=== PATIENT | male | born 1960 | race Caucasian/White ===

== ENCOUNTER 2020-05-28 09:49 | Outpatient (CLI) | payer BC | END 2020-05-28 09:50 | disposition home or self-care (01) | LOC: PET 09:49 | PROVIDERS: ATTEND Internal Medicine Hematology & Oncology | DX: C25.9 Malignant neoplasm of pancreas, unspecified (principal); K76.9 Liver disease, unspecified | CPT/HCPCS: 78815; A9552 ==

== ENCOUNTER 2020-12-25 10:28 | Outpatient (CLI) | payer BC | END 2020-12-25 10:29 | disposition home or self-care (01) | LOC: PET 10:28 | PROVIDERS: ATTEND Internal Medicine Hematology & Oncology | DX: C25.0 Malignant neoplasm of head of pancreas (principal); C78.7 Secondary malignant neoplasm of liver and intrahepatic bile duct | CPT/HCPCS: 78815; A9552 ==

== ENCOUNTER 2021-01-16 09:28 | Outpatient (CLI) | payer BC | END 2021-01-16 09:29 | disposition home or self-care (01) | LOC: MRI 09:28 | PROVIDERS: ATTEND Radiology Radiation Oncology | DX: C25.9 Malignant neoplasm of pancreas, unspecified (principal); R16.0 Hepatomegaly, not elsewhere classified; C78.7 Secondary malignant neoplasm of liver and intrahepatic bile duct | CPT/HCPCS: 74183 ==

== ENCOUNTER 2021-02-02 18:07 | Inpatient (IN) | payer BC ==
[~2021-02-02 18:07] MED LIST: Iopamidol-370 76% 500 ML 1 ML ONE
[2021-02-02 18:35] LABS: INR-International Normal Ratio 1.1; Prothrombin Time 14.1 sec (12.0-14.7)
[2021-02-02 18:36] LABS: ALT (SGPT) 25 U/L (8-55); AST (SGOT) 27 U/L (5-34); Albumin 3.9 g/dL (3.4-4.8); Alkaline Phosphatase 130 U/L (40-110); Anion Gap 14 mmol/L (10-20); BUN (Urea Nitrogen) 21 mg/dL (8.4-25.7); Bilirubin, Total 1.4 mg/dL (0.2-1.2); CK (CPK) 132 U/L (30-200); Calc. Creatinine Clearance 0 mL/min (70-130); Calcium 9.1 mg/dL (7.8-10.44); Carbon Dioxide 24 mmol/L (23-31); Chloride 101 mmol/L (98-107); Globulin 2.3 g/dL (2.4-3.5); Glucose 139 mg/dL (80-115); PTT 24.9 sec (22.9-36.1); Potassium 4.1 mmol/L (3.5-5.1); Protein, Total 6.2 g/dL (5.8-8.1); Sodium 135 mmol/L (136-145)
[2021-02-02 18:39] LABS: #Eosinphils 0.1 thou/uL (0.0-0.7); #Lymphocytes 0.6 thou/uL (1.20-3.40); #Monocytes 0.2 thou/uL (0.11-0.59); #Neutrophils 7.3 thou/uL (1.40-6.50); %Basophils 0.2 % (0.0-1.0); %Eosinophils 0.9 % (0.0-10.0); %Lymphocytes 7.4 % (21.0-51.0); %Monocytes 2.9 % (0.0-10.0); %Neutrophils 88.6 % (42.0-75.0); MDiff Complete? YES; Mean Corpuscular HGB CONC 34.1 g/dL (32.0-36.0); Mean Corpuscular Volume 96.6 fL (78.0-98.0); Mean Platelet Volume 7.1 fL (7.4-10.4); Platelet Count 115 thou/uL (130-400); Platelet Morphology Comment Appears Decreased; Polychromasia SLIGHT = 2-3 cells (100X) (0-2/hpf); RBC Distribution Width 11.4 % (11.5-14.5); Red Blood Cell (RBC) Count 3.94 mill/uL (4.70-6.10); White Blood Cell (WBC) Count 8.3 thou/uL (4.8-10.8)
[2021-02-02 19:12] LABS: CKMB 4.2 ng/mL (0-6.6)
[2021-02-02] MEDS ORDERED: Ondansetron ODT 4 MG TAB PO PRN (20:39)
[2021-02-02] MEDS ORDERED: Ondansetron PF 4 MG/2 ML Vial IVP PRN (20:39)
[2021-02-02] MEDS ORDERED: Acetaminophen 325 MG TAB PO PRN (20:39)
[2021-02-02] MEDS ORDERED: Dextrose 5% in Water 1,000 ML IV PRN (20:41)
[2021-02-02] MEDS ORDERED: Dextrose 50% Abboject 50 ML SYRINGE SLOW IVP PRN (20:41)
[2021-02-03] MEDS: Pantoprazole 40 MG VIAL IVP SCH (08:37)
[2021-02-03] MEDS ORDERED: Cepastat Lozenges 1 LOZ PO PRN (09:18)
[2021-02-03] MEDS ORDERED: Sodium Chloride 0.65% Nasal 44 ML BOT EA NARE PRN (09:18)
[2021-02-03] MEDS ORDERED: Loperamide HCl 2 MG CAP PO PRN (09:18)
[2021-02-03] MEDS ORDERED: Calcium Carbonate 500 MG ChewTAB PO PRN (09:18)
[2021-02-03] MEDS ORDERED: Hydrocerin (Eucerin) Cream 120 gm Jar TOP PRN (09:18)
[2021-02-03] MEDS ORDERED: Senokot S 8.6-50 MG TAB PO PRN (09:18)
[2021-02-03] MEDS ORDERED: Loratadine 10 MG TAB PO PRN (09:18)
[2021-02-03] MEDS ORDERED: GUAIFENESIN SF SOLN 200 MG/10 ML UDCUP PO PRN (09:18)
[2021-02-03] MEDS ORDERED: Bisacodyl 5 MG TAB PO PRN (09:18)
[2021-02-03] MEDS ORDERED: Artificial Tear Sol 15 ML BOT EA EYE PRN (09:18)
[2021-02-03] MEDS ORDERED: Acetaminophen 650 MG Suppository PR PRN (09:18)
[2021-02-03] MEDS ORDERED: Sodium Chloride 0.9% 1,000 ML IV SCH (12:30)
[2021-02-03 14:12] LABS: SARS-CoV-2 PCR by NAA Not Detected (NotDetected)
[2021-02-03] MEDS: hydrALAZINE 20 MG/ML VIAL SLOW IVP PRN ×2 (20:28→23:53)
[2021-02-03 20:32] LABS: Cardiac Risk 3.3 (Less than 4.5)
[2021-02-03] MEDS ORDERED: niCARdipine 25 MG in Sodium Chloride 0.9% 250 ML 250 ML IVPB PRN (20:35)
[2021-02-03] MEDS: niCARdipine 50 MG in Sodium Chloride 0.9% 250 ML 250 ML IVPB PRN (23:45)
[2021-02-04] MEDS: niCARdipine 50 MG in Sodium Chloride 0.9% 250 ML 250 ML IVPB PRN ×6 (02:56→23:15)
[2021-02-04] MEDS: Pantoprazole 40 MG VIAL IVP SCH (09:01)
[2021-02-04] MEDS: Cyanocobalamin (Vitamin B-12) 1,000 MCG TAB PO SCH (09:01)
[2021-02-04] MEDS: Folic Acid 1 MG TAB PO SCH (09:02)
[2021-02-04 18:08] LABS: Troponin I 0.473 ng/mL (< 0.028)
[2021-02-05] MEDS: niCARdipine 50 MG in Sodium Chloride 0.9% 250 ML 250 ML IVPB PRN ×4 (02:59→23:19)
[2021-02-05] MEDS: Pantoprazole 40 MG VIAL IVP SCH (07:50)
[2021-02-05] MEDS: Folic Acid 1 MG TAB PO SCH (07:52)
[2021-02-05] MEDS: Cyanocobalamin (Vitamin B-12) 1,000 MCG TAB PO SCH (07:52)
[2021-02-05 09:24] LABS: Hemoglobin 12.7 g/dL (14.0-18.0); Mean Corpuscular HGB CONC 33.6 g/dL (32.0-36.0); Mean Corpuscular Hemoglobin 32.9 pg (27.0-31.0); Mean Corpuscular Volume 97.7 fL (78.0-98.0); Mean Platelet Volume 7.5 fL (7.4-10.4); Platelet Count 89 thou/uL (130-400); RBC Distribution Width 11.3 % (11.5-14.5); Red Blood Cell (RBC) Count 3.87 mill/uL (4.70-6.10); White Blood Cell (WBC) Count 23.6 thou/uL (4.8-10.8)
[2021-02-05 09:31] LABS: Anion Gap 14 mmol/L (10-20); BUN (Urea Nitrogen) 30 mg/dL (8.4-25.7); Calc. Creatinine Clearance 80 mL/min (70-130); Calcium 8.6 mg/dL (7.8-10.44); Carbon Dioxide 23 mmol/L (23-31); Chloride 108 mmol/L (98-107); Glucose 216 mg/dL (80-115); Potassium 3.8 mmol/L (3.5-5.1); Sodium 141 mmol/L (136-145)
[2021-02-05 10:09] LABS: Band 23 % (5-11); Lymphocytes 3 % (21-51); MDiff Complete? YES; Monocytes 1 % (0-10); Neutrophil 72 % (42-75); Platelet Morphology Comment Appears Decreased; Polychromasia SLIGHT = 2-3 cells (100X) (0-2/hpf); Reactive Lymphocytes 1 % (0-10)
[2021-02-05] MEDS: HumaLOG 300 UNITS/3 ML VIAL SC PRN ×2 (10:41→18:21)
[2021-02-05] MEDS ORDERED: Piperacillin/Tazobactam 3.375 GM in Sodium Chloride 0.9% 100 ML IVPB SCH ×2 (16:30→17:00)
[2021-02-05] MEDS: Piperacillin/Tazobactam 3.375 GM in Sodium Chloride 0.9% 100 ML IVPB SCH (21:59)
[2021-02-06] MEDS: niCARdipine 50 MG in Sodium Chloride 0.9% 250 ML 250 ML IVPB PRN ×7 (02:29→22:37)
[2021-02-06 03:59] LABS: Anion Gap 13 mmol/L (10-20); BUN (Urea Nitrogen) 27 mg/dL (8.4-25.7); Calc. Creatinine Clearance 74 mL/min (70-130); Calcium 8.8 mg/dL (7.8-10.44); Carbon Dioxide 24 mmol/L (23-31); Chloride 110 mmol/L (98-107); Glucose 225 mg/dL (80-115); Potassium 3.7 mmol/L (3.5-5.1); Sodium 143 mmol/L (136-145)
[2021-02-06] MEDS: Piperacillin/Tazobactam 3.375 GM in Sodium Chloride 0.9% 100 ML IVPB SCH ×3 (04:43→20:53)
[2021-02-06 05:41] LABS: Band 11 % (5-11); Lymphocytes 2 % (21-51); MDiff Complete? YES; Mean Corpuscular HGB CONC 34.2 g/dL (32.0-36.0); Mean Corpuscular Hemoglobin 33.4 pg (27.0-31.0); Mean Corpuscular Volume 97.6 fL (78.0-98.0); Mean Platelet Volume 8.1 fL (7.4-10.4); Monocytes 1 % (0-10); Neutrophil 85 % (42-75); Platelet Count 86 thou/uL (130-400); Platelet Morphology Comment Appears Decreased; RBC Distribution Width 11.4 % (11.5-14.5); Red Blood Cell (RBC) Count 3.58 mill/uL (4.70-6.10)
[2021-02-06] MEDS: Cyanocobalamin (Vitamin B-12) 1,000 MCG TAB PO SCH (08:45)
[2021-02-06] MEDS: Folic Acid 1 MG TAB PO SCH (08:45)
[2021-02-06] MEDS: Pantoprazole 40 MG VIAL IVP SCH (09:02)
[2021-02-06] MEDS: HumaLOG 300 UNITS/3 ML VIAL SC PRN ×2 (10:00→15:59)
[2021-02-06] MEDS ORDERED: niCARdipine 50 MG in Sodium Chloride 0.9% 250 ML 230 ML IVPB PRN (10:30)
[2021-02-06 12:43] LABS: Bacteria/HPF 1+ HPF (None Seen); Bilirubin Negative (Negative); Blood, Urine Negative (Negative); Clarity Clear (Clear); Glucose, Urine (Dipstick) 500 mg/dL (Negative); Ketone, Urine 20 mg/dL (Negative); Leukocyte Negative Leu/uL (Negative); Nitrite Negative (Negative); Protein, Urine (Dipstick) Negative (Neg-Trace); RBC/HPF 0-3 HPF (0-3); Specific Gravity, Urine 1.022 (1.002-1.036); Squamous Epithelial None Seen HPF (0-3); Urobilinogen Normal mg/dL (Less than 2); WBC/HPF 0-3 HPF (0-3)
[2021-02-06 12:44] LABS: Urine Culture Reflex Yes Yes
[2021-02-06 15:35] LABS: Calcium 8.8 mg/dL (7.8-10.44); Magnesium 2.4 mg/dL (1.6-2.6); Potassium 3.6 mmol/L (3.5-5.1)
[2021-02-07] MEDS: hydrALAZINE 20 MG/ML VIAL SLOW IVP PRN (01:39)
[2021-02-07] MEDS: niCARdipine 50 MG in Sodium Chloride 0.9% 250 ML 250 ML IVPB PRN ×5 (02:16→20:30)
[2021-02-07 04:02] LABS: Hemoglobin 12.2 g/dL (14.0-18.0); Mean Corpuscular HGB CONC 33.3 g/dL (32.0-36.0); Mean Corpuscular Hemoglobin 32.8 pg (27.0-31.0); Mean Corpuscular Volume 98.5 fL (78.0-98.0); Mean Platelet Volume 7.9 fL (7.4-10.4); Platelet Count 96 thou/uL (130-400); RBC Distribution Width 11.4 % (11.5-14.5); Red Blood Cell (RBC) Count 3.72 mill/uL (4.70-6.10); White Blood Cell (WBC) Count 9.2 thou/uL (4.8-10.8)
[2021-02-07 04:14] LABS: Anion Gap 16 mmol/L (10-20); BUN (Urea Nitrogen) 24 mg/dL (8.4-25.7); Calc. Creatinine Clearance 81 mL/min (70-130); Calcium 9.1 mg/dL (7.8-10.44); Carbon Dioxide 22 mmol/L (23-31); Chloride 113 mmol/L (98-107); Glucose 221 mg/dL (80-115); Potassium 3.7 mmol/L (3.5-5.1); Sodium 147 mmol/L (136-145)
[2021-02-07 04:35] LABS: Band 14 % (5-11); Dohle Bodies SLIGHT; Eosinophils 4 % (0-10); Lymphocytes 4 % (21-51); MDiff Complete? YES; Monocytes 1 % (0-10); Neutrophil 77 % (42-75); Platelet Morphology Comment Appears Decreased; Toxic Granulation SLIGHT
[2021-02-07] MEDS: Piperacillin/Tazobactam 3.375 GM in Sodium Chloride 0.9% 100 ML IVPB SCH ×3 (04:50→20:21)
[2021-02-07] MEDS: HumaLOG 300 UNITS/3 ML VIAL SC PRN ×4 (04:52→22:00)
[2021-02-07] MEDS: Metoprolol Tartrate 25 MG TAB PER TUBE SCH ×2 (08:56→20:22)
[2021-02-07] MEDS: Pantoprazole 40 MG VIAL IVP SCH (08:56)
[2021-02-07] MEDS: Folic Acid 1 MG TAB PO SCH (08:56)
[2021-02-07] MEDS: Cyanocobalamin (Vitamin B-12) 1,000 MCG TAB PO SCH (08:56)
[2021-02-07] MEDS ORDERED: Fentanyl 100 MCG/2 ML VIAL ONE (11:55)
[2021-02-07] MEDS ORDERED: Lidocaine 1% w/Epinephrine 1:100K 20 ML VIAL ONE (12:00)
[2021-02-07] MEDS ORDERED: Bupivacaine 0.25% 10 ML VIAL ONE (12:00)
[2021-02-07] MEDS ORDERED: Lidocaine 1% PF 5 ML VIAL ONE (12:40)
[2021-02-07] MEDS ORDERED: Glycopyrrolate 0.2 MG/ML 5 ML SYRINGE ONE (12:40)
[2021-02-07] MEDS ORDERED: Dexamethasone 20 MG/5 ML VIAL ONE (12:40)
[2021-02-07] MEDS ORDERED: PROPOFOL 200 MG/20 ML VIAL ONE (12:40)
[2021-02-07] MEDS ORDERED: Rocuronium Bromide 10 MG/ML (10ML VIAL) ONE (12:40)
[2021-02-07] MEDS ORDERED: Ondansetron PF 4 MG/2 ML Vial ONE (12:40)
[2021-02-07] MEDS ORDERED: Morphine 4 MG/ML VIAL SLOW IVP PRN (13:14)
[2021-02-07] MEDS ORDERED: Hydrocodone-Acetamin 15 ML UDCUP PO PRN (13:14)
[2021-02-07] MEDS ORDERED: Ondansetron HCl/PF 4 MG/2 ML Vial IVP PRN (13:35)
[2021-02-07] MEDS ORDERED: Promethazine HCl 25 MG/ML VIAL IVPB PRN (13:35)
[2021-02-07] MEDS ORDERED: Promethazine HCl 25 MG/ML VIAL IM PRN (13:35)
[2021-02-07] MEDS ORDERED: Pancrelipase DR 12,000 1 CAP FS PRN (19:15)
[2021-02-07] MEDS ORDERED: Sodium Bicarbonate Tab 325 MG TAB PER TUBE PRN (19:15)
[2021-02-08] MEDS: Piperacillin/Tazobactam 3.375 GM in Sodium Chloride 0.9% 100 ML IVPB SCH (04:39)
[2021-02-08] MEDS: HumaLOG 300 UNITS/3 ML VIAL SC PRN ×3 (04:40→18:06)
[2021-02-08] MEDS: hydrALAZINE 20 MG/ML VIAL SLOW IVP PRN ×2 (07:33→17:12)
[2021-02-08 09:09] VITALS: BMI 22.2
[2021-02-08] MEDS: Folic Acid 1 MG TAB PO SCH (09:10)
[2021-02-08] MEDS: Pantoprazole 40 MG VIAL IVP SCH (09:10)
[2021-02-08] MEDS: Cyanocobalamin (Vitamin B-12) 1,000 MCG TAB PO SCH (09:11)
[2021-02-08] MEDS: Metoprolol Tartrate 25 MG TAB PER TUBE SCH ×2 (09:11→21:12)
[2021-02-08 09:32] LABS: Anion Gap 15 mmol/L (10-20); BUN (Urea Nitrogen) 27 mg/dL (8.4-25.7); Calc. Creatinine Clearance 75 mL/min (70-130); Calcium 9.3 mg/dL (7.8-10.44); Carbon Dioxide 23 mmol/L (23-31); Chloride 113 mmol/L (98-107); Glucose 276 mg/dL (80-115); Magnesium 2.5 mg/dL (1.6-2.6); Phosphorus 3.3 mg/dL (2.3-4.7); Potassium 4.2 mmol/L (3.5-5.1); Sodium 147 mmol/L (136-145)
[2021-02-08 13:36] LABS: Hemoglobin A1c 7.3 % (4.0-6.0)
[2021-02-08] MEDS: Labetalol HCl 100 MG/20 ML VIAL SLOW IVP PRN (18:57)
[2021-02-08] MEDS: Carvedilol 6.25 MG TAB PO SCH (21:13)
[2021-02-09] MEDS: HumaLOG 300 UNITS/3 ML VIAL SC PRN ×5 (00:26→21:52)
[2021-02-09] MEDS: hydrALAZINE 20 MG/ML VIAL SLOW IVP PRN ×2 (05:14→10:09)
[2021-02-09] MEDS: Pantoprazole 40 MG VIAL IVP SCH (10:08)
[2021-02-09] MEDS: Folic Acid 1 MG TAB PO SCH (10:09)
[2021-02-09] MEDS: Carvedilol 6.25 MG TAB PO SCH (10:09)
[2021-02-09] MEDS: Cyanocobalamin (Vitamin B-12) 1,000 MCG TAB PO SCH (10:09)
[2021-02-09] MEDS ORDERED: BIOTENE MOUTH SPRAY 44.3 ML MM PRN (11:52)
[2021-02-09] MEDS: Metoprolol Tartrate 25 MG TAB PER TUBE SCH ×3 (12:23→21:46)
[2021-02-09] MEDS: hydrALAZINE 25 MG TAB PER TUBE SCH ×2 (15:55→21:46)
[2021-02-10] MEDS: HumaLOG 300 UNITS/3 ML VIAL SC PRN ×4 (05:57→22:38)
[2021-02-10] MEDS: Pantoprazole 40 MG VIAL IVP SCH (08:59)
[2021-02-10] MEDS: Folic Acid 1 MG TAB PO SCH (08:59)
[2021-02-10] MEDS: hydrALAZINE 25 MG TAB PER TUBE SCH ×4 (08:59→20:01)
[2021-02-10] MEDS: Metoprolol Tartrate 25 MG TAB PER TUBE SCH ×2 (09:00→20:02)
[2021-02-10] MEDS: Cyanocobalamin (Vitamin B-12) 1,000 MCG TAB PO SCH (09:00)
[2021-02-10 10:34] LABS: #Eosinphils 0.1 thou/uL (0.0-0.7); #Lymphocytes 0.4 thou/uL (1.20-3.40); #Monocytes 0.2 thou/uL (0.11-0.59); #Neutrophils 2.1 thou/uL (1.40-6.50); %Basophils 0.3 % (0.0-1.0); %Eosinophils 1.8 % (0.0-10.0); %Lymphocytes 13.3 % (21.0-51.0); %Monocytes 8.2 % (0.0-10.0); %Neutrophils 76.4 % (42.0-75.0); Hemoglobin 13.2 g/dL (14.0-18.0); Mean Corpuscular HGB CONC 32.6 g/dL (32.0-36.0); Mean Corpuscular Hemoglobin 32.6 pg (27.0-31.0); Mean Platelet Volume 7.9 fL (7.4-10.4); Platelet Count 98 thou/uL (130-400); RBC Distribution Width 11.6 % (11.5-14.5); Red Blood Cell (RBC) Count 4.06 mill/uL (4.70-6.10); White Blood Cell (WBC) Count 2.8 thou/uL (4.8-10.8)
[2021-02-10 10:53] LABS: Anion Gap 12 mmol/L (10-20); BUN (Urea Nitrogen) 28 mg/dL (8.4-25.7); Calc. Creatinine Clearance 98 mL/min (70-130); Calcium 9.1 mg/dL (7.8-10.44); Carbon Dioxide 28 mmol/L (23-31); Chloride 110 mmol/L (98-107); Glucose 267 mg/dL (80-115); Potassium 3.9 mmol/L (3.5-5.1); Sodium 146 mmol/L (136-145)
[2021-02-10] MEDS: hydrALAZINE 20 MG/ML VIAL SLOW IVP PRN ×2 (15:19→23:32)
[2021-02-10] MEDS: Labetalol HCl 100 MG/20 ML VIAL SLOW IVP PRN (16:21)
[2021-02-10 21:45] LABS: SARS-CoV-2 PCR by NAA Not Detected (NotDetected)
[2021-02-11] MEDS: HumaLOG 300 UNITS/3 ML VIAL SC PRN ×3 (05:03→17:57)
[2021-02-11] MEDS: hydrALAZINE 20 MG/ML VIAL SLOW IVP PRN (05:03)
[2021-02-11 05:58] LABS: #Eosinphils 0.1 thou/uL (0.0-0.7); #Lymphocytes 0.4 thou/uL (1.20-3.40); #Monocytes 0.2 thou/uL (0.11-0.59); #Neutrophils 2.6 thou/uL (1.40-6.50); %Basophils 0.9 % (0.0-1.0); %Eosinophils 2.8 % (0.0-10.0); %Lymphocytes 12.4 % (21.0-51.0); %Monocytes 5.4 % (0.0-10.0); %Neutrophils 78.5 % (42.0-75.0); Hemoglobin 13.3 g/dL (14.0-18.0); Mean Corpuscular HGB CONC 33.7 g/dL (32.0-36.0); Mean Corpuscular Hemoglobin 33.2 pg (27.0-31.0); Mean Corpuscular Volume 98.5 fL (78.0-98.0); Mean Platelet Volume 8.2 fL (7.4-10.4); Platelet Count 94 thou/uL (130-400); RBC Distribution Width 11.5 % (11.5-14.5); Red Blood Cell (RBC) Count 4.01 mill/uL (4.70-6.10); White Blood Cell (WBC) Count 3.3 thou/uL (4.8-10.8)
[2021-02-11 06:18] LABS: Anion Gap 12 mmol/L (10-20); BUN (Urea Nitrogen) 23 mg/dL (8.4-25.7); Calc. Creatinine Clearance 94 mL/min (70-130); Calcium 8.8 mg/dL (7.8-10.44); Carbon Dioxide 27 mmol/L (23-31); Chloride 109 mmol/L (98-107); Glucose 260 mg/dL (80-115); Potassium 3.8 mmol/L (3.5-5.1); Sodium 144 mmol/L (136-145)
[2021-02-11] MEDS: hydrALAZINE 25 MG TAB PER TUBE SCH ×3 (08:35→20:03)
[2021-02-11] MEDS: Metoprolol Tartrate 25 MG TAB PER TUBE SCH ×2 (08:36→20:04)
[2021-02-11] MEDS: Pantoprazole 40 MG VIAL IVP SCH (08:36)
[2021-02-11] MEDS: Folic Acid 1 MG TAB PO SCH (08:36)
[2021-02-11] MEDS: Cyanocobalamin (Vitamin B-12) 1,000 MCG TAB PO SCH (08:36)
[2021-02-11] MEDS ORDERED: Dextrose 50% Abboject 50 ML SYRINGE SLOW IVP PRN (13:04)
[2021-02-11] MEDS ORDERED: Dextrose 5% in Water 1,000 ML IV PRN (13:04)
[2021-02-11] MEDS: metFORMIN 500 MG TAB PO SCH (17:54)
[2021-02-12] MEDS: HumaLOG 300 UNITS/3 ML VIAL SC PRN ×5 (00:50→21:44)
[2021-02-12] MEDS: metFORMIN 500 MG TAB PO SCH ×2 (08:33→16:56)
[2021-02-12] MEDS: Pantoprazole 40 MG VIAL IVP SCH (08:33)
[2021-02-12] MEDS: Folic Acid 1 MG TAB PO SCH (08:34)
[2021-02-12] MEDS: Cyanocobalamin (Vitamin B-12) 1,000 MCG TAB PO SCH (08:34)
[2021-02-12] MEDS: hydrALAZINE 25 MG TAB PER TUBE SCH ×3 (08:34→21:37)
[2021-02-12] MEDS: Metoprolol Tartrate 25 MG TAB PER TUBE SCH ×2 (08:34→21:37)
[2021-02-13] MEDS: HumaLOG 300 UNITS/3 ML VIAL SC PRN ×3 (00:59→18:35)
[2021-02-13] MEDS: Metoprolol Tartrate 25 MG TAB PER TUBE SCH ×2 (08:44→22:18)
[2021-02-13] MEDS: Folic Acid 1 MG TAB PO SCH (08:44)
[2021-02-13] MEDS: hydrALAZINE 25 MG TAB PER TUBE SCH ×3 (08:44→22:14)
[2021-02-13] MEDS: Pantoprazole 40 MG GRANULES PACKET PER TUBE SCH (08:45)
[2021-02-13] MEDS: Cyanocobalamin (Vitamin B-12) 1,000 MCG TAB PO SCH (08:45)
[2021-02-13] MEDS: metFORMIN 500 MG TAB PO SCH ×2 (08:45→15:48)
[2021-02-13] MEDS ORDERED: Atorvastatin Calcium 40 MG TAB PER TUBE SCH (21:00)
[2021-02-14] MEDS: Pantoprazole 40 MG GRANULES PACKET PER TUBE SCH (08:17)
[2021-02-14] MEDS: hydrALAZINE 25 MG TAB PER TUBE SCH ×2 (08:18→14:32)
[2021-02-14] MEDS: Cyanocobalamin (Vitamin B-12) 1,000 MCG TAB PO SCH (08:18)
[2021-02-14] MEDS: metFORMIN 500 MG TAB PO SCH ×2 (08:18→17:53)
[2021-02-14] MEDS: Metoprolol Tartrate 25 MG TAB PER TUBE SCH (08:18)
[2021-02-14] MEDS: Folic Acid 1 MG TAB PO SCH (08:18)
[2021-02-14] MEDS ORDERED: Aspirin Chewable 81 MG TAB PER TUBE SCH (09:00)
[2021-02-14] MEDS ORDERED: Aspirin 81 mg Enteric Coated Tablet PER TUBE SCH (09:00)
[2021-02-14] MEDS: HumaLOG 300 UNITS/3 ML VIAL SC PRN ×2 (14:32→18:44)
[2021-02-14 15:50] VITALS: BP 125/63; TEMP 97.9
== END 2021-02-14 20:05 | DRG 61 ==
LOC: ERS 18:07 → CCU 20:10 → NEURO 02-08 09:23
PROVIDERS: ADMIT Internal Medicine; ATTEND Internal Medicine
PROC: 02HV33Z Insertion of Infusion Device into Superior Vena Cava, Percutaneous Approach (ICD-10-PCS; principal; 2021-02-02)
PROC: 3E03317 Introduction of Other Thrombolytic into Peripheral Vein, Percutaneous Approach (ICD-10-PCS; 2021-02-02)
PROC: 0DH63UZ Insertion of Feeding Device into Stomach, Percutaneous Approach (ICD-10-PCS; 2021-02-07)
DX: I63.511 Cerebral infarction due to unspecified occlusion or stenosis of right middle cerebral artery (principal); I21.A1 Myocardial infarction type 2; I61.8 Other nontraumatic intracerebral hemorrhage; G81.94 Hemiplegia, unspecified affecting left nondominant side; E87.1 Hypo-osmolality and hyponatremia; I47.1 Supraventricular tachycardia; E46 Unspecified protein-calorie malnutrition; C25.0 Malignant neoplasm of head of pancreas; Z20.822 Contact with and (suspected) exposure to COVID-19; R29.810 Facial weakness; R13.12 Dysphagia, oropharyngeal phase; D64.9 Anemia, unspecified; D69.6 Thrombocytopenia, unspecified; R22.42 Localized swelling, mass and lump, left lower limb; E80.6 Other disorders of bilirubin metabolism; E78.5 Hyperlipidemia, unspecified; E78.00 Pure hypercholesterolemia, unspecified; I10 Essential (primary) hypertension; R13.0 Aphagia; E11.319 Type 2 diabetes mellitus with unspecified diabetic retinopathy without macular edema; Z85.07 Personal history of malignant neoplasm of pancreas; Z92.21 Personal history of antineoplastic chemotherapy; Z79.899 Other long term (current) drug therapy; Z91.81 History of falling; Z68.22 Body mass index [BMI] 22.0-22.9, adult; D70.1 Agranulocytosis secondary to cancer chemotherapy
CPT/HCPCS: 36415; 36416; 70450; 70496; 70498; 71045; 74230; 80048; 80053; 80061; 81001; 82550; 82553; 83036; 83735; 84100; 84145; 84484; 85025; 85610; 85730; 87040; 87086; 93005; 93306; 93970; C9113; J0360; J1100; J1815; J2405; J2543; J2704; J2997; J3010; J3490; J7050; Q9967; S0020; U0003; U0005

== ENCOUNTER 2021-03-18 13:15 | Inpatient (IN) | payer BC ==
[2021-03-18 14:05] LABS: #Eosinphils 0.1 thou/uL (0.0-0.7); #Lymphocytes 1.1 thou/uL (1.20-3.40); #Monocytes 0.9 thou/uL (0.11-0.59); #Neutrophils 7.5 thou/uL (1.40-6.50); %Basophils 0.3 % (0.0-1.0); %Eosinophils 1.5 % (0.0-10.0); %Lymphocytes 11.2 % (21.0-51.0); %Monocytes 9.2 % (0.0-10.0); %Neutrophils 77.8 % (42.0-75.0); Hemoglobin 14.4 g/dL (14.0-18.0); Mean Corpuscular HGB CONC 32.4 g/dL (32.0-36.0); Mean Corpuscular Hemoglobin 30.2 pg (27.0-31.0); Mean Platelet Volume 7.7 fL (7.4-10.4); Platelet Count 166 thou/uL (130-400); RBC Distribution Width 12.4 % (11.5-14.5); Red Blood Cell (RBC) Count 4.76 mill/uL (4.70-6.10); White Blood Cell (WBC) Count 9.6 thou/uL (4.8-10.8)
[2021-03-18 14:31] LABS: ALT (SGPT) 38 U/L (8-55); AST (SGOT) 56 U/L (5-34); Albumin 3.7 g/dL (3.4-4.8); Alkaline Phosphatase 248 U/L (40-110); Anion Gap 19 mmol/L (10-20); BUN (Urea Nitrogen) 9 mg/dL (8.4-25.7); Bilirubin, Total 0.6 mg/dL (0.2-1.2); Calc. Creatinine Clearance 0 mL/min (70-130); Calcium 9.1 mg/dL (7.8-10.44); Carbon Dioxide 18 mmol/L (23-31); Chloride 104 mmol/L (98-107); Globulin 3.3 g/dL (2.4-3.5); Glucose 146 mg/dL (80-115); Potassium 4.1 mmol/L (3.5-5.1); Sodium 137 mmol/L (136-145)
[2021-03-18 14:33] LABS: INR-International Normal Ratio 1.4
[2021-03-18 14:34] LABS: PTT 30.1 sec (22.9-36.1)
[2021-03-18 14:55] LABS: CKMB 1.8 ng/mL (0-6.6)
[2021-03-18] MEDS ORDERED: Ondansetron PF 4 MG/2 ML Vial IVP PRN ×2 (15:45→21:41)
[2021-03-18] MEDS ORDERED: Ondansetron ODT 4 MG TAB SL PRN (15:45)
[2021-03-18] MEDS ORDERED: Acetaminophen 325 MG TAB PO PRN (15:45)
[2021-03-18] MEDS ORDERED: Aspirin 300 MG Suppository ONE (16:07)
[2021-03-18] MEDS: Dextrose 5 %-0.45 % NaCl 1,000 ML IV SCH (18:42)
[2021-03-18 22:23] LABS: SARS-CoV-2 NAA Rapid Test Not Detected (NotDetected)
[2021-03-19] MEDS: Dextrose 5 %-0.45 % NaCl 1,000 ML IV SCH (02:00)
[2021-03-19] MEDS ORDERED: Dextrose 5% in Water 1,000 ML IV PRN (02:34)
[2021-03-19] MEDS ORDERED: Dextrose 50% Abboject 50 ML SYRINGE SLOW IVP PRN (02:34)
[2021-03-19] MEDS ORDERED: HumaLOG 300 UNITS/3 ML VIAL SC PRN (02:34)
[2021-03-19 07:43] LABS: #Eosinphils 0.2 thou/uL (0.0-0.7); #Lymphocytes 0.7 thou/uL (1.20-3.40); #Monocytes 0.6 thou/uL (0.11-0.59); #Neutrophils 5.2 thou/uL (1.40-6.50); %Basophils 0.4 % (0.0-1.0); %Eosinophils 3.1 % (0.0-10.0); %Lymphocytes 10.3 % (21.0-51.0); %Monocytes 9.1 % (0.0-10.0); Hemoglobin 13.5 g/dL (14.0-18.0); Mean Corpuscular HGB CONC 32.6 g/dL (32.0-36.0); Mean Corpuscular Hemoglobin 30.5 pg (27.0-31.0); Mean Corpuscular Volume 93.6 fL (78.0-98.0); Mean Platelet Volume 7.3 fL (7.4-10.4); Platelet Count 124 thou/uL (130-400); RBC Distribution Width 12.3 % (11.5-14.5); Red Blood Cell (RBC) Count 4.42 mill/uL (4.70-6.10); White Blood Cell (WBC) Count 6.7 thou/uL (4.8-10.8)
[2021-03-19 08:01] LABS: Anion Gap 14 mmol/L (10-20); BUN (Urea Nitrogen) 7 mg/dL (8.4-25.7); Calc. Creatinine Clearance 0 mL/min (70-130); Carbon Dioxide 23 mmol/L (23-31); Chloride 106 mmol/L (98-107); Cholesterol 73 mg/dl (< 200 Desired); Glucose 194 mg/dL (80-115); HDL Cholesterol 24 mg/dL (>60 Neg Risk); LDL Cholesterol, Calculated 34 mg/dL; Potassium 3.3 mmol/L (3.5-5.1); Sodium 140 mmol/L (136-145); Triglycerides 76 mg/dL (Less than 150)
[2021-03-19 08:08] LABS: Troponin I 1.095 ng/mL (< 0.028)
[2021-03-19] MEDS ORDERED: Aspirin 81 mg Enteric Coated Tablet PO SCH (09:00)
[2021-03-19] MEDS: Aspirin 300 MG Suppository PR SCH (10:51)
[2021-03-19] MEDS ORDERED: Aspirin Chewable 81 MG TAB ONE (11:04)
[2021-03-19] MEDS ORDERED: Atorvastatin Calcium 40 MG TAB PER TUBE SCH (21:00)
[2021-03-19] MEDS ORDERED: Metoprolol Tartrate 5 MG/5 ML VIAL ONE ×2 (21:51→22:59)
[2021-03-19 22:04] LABS: Actual Bicarbonate (HCO3a) 18.7 mEq/L (22-28); Base Excess (BEa) -4.8 mEq/L (-2.0 to +3.0); CO2 Tension 30.7 mmHg (35.0-45.0); Calcium, Ionized (arterial) 1.21 mmol/L (1.12-1.30); Carboxyhemoglobin (COHb) 0.7 gm% (0.0-3.0); Hemoglobin (Hb) 15.3 g/dL (14.0-18.0); Potassium - ABG Lab 3.53 mmol/L (3.70-5.30)
[2021-03-19 22:12] LABS: ALV-art Gradient 629.025 mmHg (0-20); O2 Tension (PaO2), arterial 45.6 mmHg (> 80.0); Puncture Site LRA
[2021-03-19] MEDS ORDERED: Propofol 1,000 MG/100 ML VIAL IV ONE (22:47)
[2021-03-19] MEDS ORDERED: Morphine 4 MG/ML VIAL SLOW IVP PRN (22:55)
[2021-03-19] MEDS ORDERED: Fentanyl BOLUS 250 ML IVPB PRN (23:00)
[2021-03-19] MEDS ORDERED: Lorazepam 2 MG/ML VIAL SLOW IVP PRN (23:00)
[2021-03-19] MEDS ORDERED: DISCONTINUE PREVIOUS NARCOTIC PAIN MEDICATIONS AND BENZODIAZEPINES FS SCH (23:00)
[2021-03-19] MEDS ORDERED: Propofol BOLUS 1,000 MG/100 ML VIAL IV PRN (23:00)
[2021-03-19] MEDS ORDERED: fentaNYL Citrate-0.9 % NaCl/PF 100 ML IV SCH (23:00)
[2021-03-19] MEDS ORDERED: Propofol 1,000 MG/100 ML VIAL IV PRN (23:00)
[2021-03-19] MEDS ORDERED: Piperacillin/Tazobactam 3.375 GM in Sodium Chloride 0.9% 100 ML IVPB SCH ×2 (23:30→23:59)
[2021-03-19] MEDS ORDERED: Metoprolol Tartrate 5 MG/5 ML VIAL IVP SCH (23:30)
[2021-03-19 23:39] LABS: Actual Bicarbonate (HCO3a) 22.7 mEq/L (22-28); Base Excess (BEa) -1.7 mEq/L (-2.0 to +3.0); CO2 Tension 37.6 mmHg (35.0-45.0); Carboxyhemoglobin (COHb) 0.8 gm% (0.0-3.0); Hemoglobin (Hb) 15.2 g/dL (14.0-18.0); O2 Tension (PaO2), arterial 175.2 mmHg (> 80.0); Potassium - ABG Lab 3.37 mmol/L (3.70-5.30)
[2021-03-19 23:40] LABS: Puncture Site LBA
[2021-03-19] MEDS ORDERED: Sodium Chloride 0.9% 1,000 ML IV SCH (23:45)
[2021-03-19] MEDS ORDERED: Piperacillin/Tazobactam 3.375 GM VIAL ONE (23:55)
[2021-03-19] MEDS ORDERED: Sodium Chloride 0.9% 100 ML ONE (23:56)
[2021-03-20 00:33] LABS: Mean Corpuscular HGB CONC 33.3 g/dL (32.0-36.0); Mean Corpuscular Hemoglobin 31.2 pg (27.0-31.0); Mean Corpuscular Volume 93.6 fL (78.0-98.0); Mean Platelet Volume 7.9 fL (7.4-10.4); Platelet Count 156 thou/uL (130-400); RBC Distribution Width 12.4 % (11.5-14.5); Red Blood Cell (RBC) Count 5.15 mill/uL (4.70-6.10); White Blood Cell (WBC) Count 7.2 thou/uL (4.8-10.8)
[2021-03-20 00:46] LABS: Lactic Acid 1.8 mmol/L (0.5-2.2)
[2021-03-20 00:50] LABS: ALT (SGPT) 40 U/L (8-55); AST (SGOT) 47 U/L (5-34); Albumin 3.7 g/dL (3.4-4.8); Alkaline Phosphatase 266 U/L (40-110); Anion Gap 19 mmol/L (10-20); BUN (Urea Nitrogen) 10 mg/dL (8.4-25.7); Calc. Creatinine Clearance 88 mL/min (70-130); Carbon Dioxide 20 mmol/L (23-31); Chloride 105 mmol/L (98-107); Globulin 3.2 g/dL (2.4-3.5); Glucose 181 mg/dL (80-115); Potassium 3.9 mmol/L (3.5-5.1); Protein, Total 6.9 g/dL (5.8-8.1); Sodium 140 mmol/L (136-145)
[2021-03-20 00:51] LABS: #Eosinphils 0.1 thou/uL (0.0-0.7); #Lymphocytes 0.5 thou/uL (1.20-3.40); #Monocytes 0.6 thou/uL (0.11-0.59); #Neutrophils 6.1 thou/uL (1.40-6.50); %Basophils 0.1 % (0.0-1.0); %Eosinophils 0.8 % (0.0-10.0); %Lymphocytes 7.4 % (21.0-51.0); %Monocytes 7.9 % (0.0-10.0); %Neutrophils 83.7 % (42.0-75.0)
[2021-03-20 04:15] LABS: Bilirubin Negative (Negative); Blood, Urine Negative (Negative); Glucose, Urine (Dipstick) Negative (Negative); Ketone, Urine 15 mg/dL (Negative); Leukocyte Negative (Negative); Nitrite Negative (Negative); Protein, Urine (Dipstick) 30 mg/dL (Neg-Trace); Specific Gravity, Urine 1.025 (1.005-1.030); Urobilinogen 0.2 mg/dL (Less than 2)
[2021-03-20 04:16] LABS: Bacteria/HPF None Seen HPF (None Seen); Mucous/LPF Rare LPF (<2+); RBC/HPF 0-3 HPF (0-3); Squamous Epithelial None Seen HPF (0-3); WBC/HPF 0-3 HPF (0-3)
[2021-03-20 04:20] LABS: Clarity Clear (Clear)
[2021-03-20 04:22] LABS: Urine Culture Reflex No No
[2021-03-20] MEDS: Piperacillin/Tazobactam 3.375 GM in Sodium Chloride 0.9% 100 ML IVPB SCH ×2 (05:02→12:42)
[2021-03-20] MEDS: HumaLOG 300 UNITS/3 ML VIAL SC PRN ×2 (05:04→12:24)
[2021-03-20] MEDS ORDERED: Vancomycin 1 GM in Premix Bag 1 BAG IVPB SCH ×2 (06:00→08:00)
[2021-03-20] MEDS ORDERED: Pantoprazole 40 MG VIAL IVP SCH (09:00)
[2021-03-20] MEDS ORDERED: Aspirin Chewable 81 MG TAB PO SCH (09:00)
[2021-03-20] MEDS: Aspirin 300 MG Suppository PR SCH (09:01)
[2021-03-20] MEDS ORDERED: Sodium Chloride 0.9% 1,000 ML IV SCH (10:00)
[2021-03-20] MEDS: Scopolamine 1.5 mg/72 hour Patch TD SCH (15:19)
[2021-03-21 05:58] LABS: ALT (SGPT) 31 U/L (8-55); AST (SGOT) 39 U/L (5-34); Albumin 3.2 g/dL (3.4-4.8); Alkaline Phosphatase 208 U/L (40-110); Anion Gap 17 mmol/L (10-20); BUN (Urea Nitrogen) 15 mg/dL (8.4-25.7); Bilirubin, Total 0.8 mg/dL (0.2-1.2); Calc. Creatinine Clearance 81 mL/min (70-130); Carbon Dioxide 19 mmol/L (23-31); Chloride 109 mmol/L (98-107); Globulin 2.9 g/dL (2.4-3.5); Glucose 170 mg/dL (80-115); Magnesium 2.1 mg/dL (1.6-2.6); Potassium 3.4 mmol/L (3.5-5.1); Protein, Total 6.1 g/dL (5.8-8.1); Sodium 142 mmol/L (136-145)
[2021-03-21 06:23] LABS: #Lymphocytes 0.5 thou/uL (1.20-3.40); #Monocytes 0.7 thou/uL (0.11-0.59); %Eosinophils 0.2 % (0.0-10.0); %Lymphocytes 6.1 % (21.0-51.0); %Neutrophils 85.7 % (42.0-75.0); Hemoglobin 12.9 g/dL (14.0-18.0); MDiff Complete? YES; Mean Corpuscular HGB CONC 32.8 g/dL (32.0-36.0); Mean Corpuscular Volume 94.6 fL (78.0-98.0); Mean Platelet Volume 8.5 fL (7.4-10.4); Platelet Count 105 thou/uL (130-400); RBC Distribution Width 12.4 % (11.5-14.5); Red Blood Cell (RBC) Count 4.16 mill/uL (4.70-6.10); White Blood Cell (WBC) Count 8.2 thou/uL (4.8-10.8)
[2021-03-21 06:24] LABS: Burr Cells SLIGHT = 2-5 cells (100X) (0-1/hpf); Platelet Morphology Comment Appears Decreased; Schistocytes SLIGHT = 2-5 cells (100X) (0-1/hpf); Tear Drops SLIGHT = 2-5 cells (100X) (0-1/hpf)
[2021-03-21] MEDS: Lorazepam 2 MG/ML VIAL SLOW IVP PRN (21:48)
[2021-03-21] MEDS: Morphine 4 MG/ML VIAL SLOW IVP PRN (21:48)
[2021-03-22] MEDS: Lorazepam 2 MG/ML VIAL SLOW IVP PRN ×2 (09:14→17:38)
[2021-03-22] MEDS: Morphine 4 MG/ML VIAL SLOW IVP PRN ×2 (09:22→17:38)
[2021-03-23] MEDS: Scopolamine 1.5 mg/72 hour Patch TD SCH (16:03)
[2021-03-24] MEDS: Morphine 4 MG/ML VIAL SLOW IVP PRN ×2 (05:36→09:37)
[2021-03-24] MEDS: Lorazepam 2 MG/ML VIAL SLOW IVP PRN ×2 (05:36→09:38)
[2021-03-24 09:35] VITALS: BP 125/90; TEMP 98.4
== END 2021-03-24 14:05 | disposition expired | DRG 64 ==
LOC: ERS 13:15 → ERHOLD 15:29 → NEURO 03-19 13:21 → SURG A 03-19 23:00 → CCU 03-20 03:31 → MSONC 03-20 20:54
PROVIDERS: ADMIT Internal Medicine; ATTEND Internal Medicine
PROC: 5A1935Z Respiratory Ventilation, Less than 24 Consecutive Hours (ICD-10-PCS; principal; 2021-03-20)
PROC: 0BH17EZ Insertion of Endotracheal Airway into Trachea, Via Natural or Artificial Opening (ICD-10-PCS; 2021-03-20)
DX: I63.40 Cerebral infarction due to embolism of unspecified cerebral artery (principal); Z66 Do not resuscitate; Z51.5 Encounter for palliative care; I21.A1 Myocardial infarction type 2; J96.01 Acute respiratory failure with hypoxia; J69.0 Pneumonitis due to inhalation of food and vomit; A41.9 Sepsis, unspecified organism; C25.9 Malignant neoplasm of pancreas, unspecified; I69.354 Hemiplegia and hemiparesis following cerebral infarction affecting left non-dominant side; G81.91 Hemiplegia, unspecified affecting right dominant side; R29.730 NIHSS score 30; Z20.822 Contact with and (suspected) exposure to COVID-19; E87.6 Hypokalemia; E88.09 Other disorders of plasma-protein metabolism, not elsewhere classified; R79.89 Other specified abnormal findings of blood chemistry; K21.9 Gastro-esophageal reflux disease without esophagitis; E78.5 Hyperlipidemia, unspecified; I10 Essential (primary) hypertension; R47.01 Aphasia; E11.319 Type 2 diabetes mellitus with unspecified diabetic retinopathy without macular edema; Z78.1 Physical restraint status; Z98.890 Other specified postprocedural states; Z93.1 Gastrostomy status; Z79.899 Other long term (current) drug therapy; Z79.84 Long term (current) use of oral hypoglycemic drugs; Z90.410 Acquired total absence of pancreas; Z90.49 Acquired absence of other specified parts of digestive tract; Z79.4 Long term (current) use of insulin
CPT/HCPCS: 0240U; 36415; 36416; 36600; 70450; 70551; 71045; 80048; 80053; 80061; 81001; 82140; 82553; 82805; 83605; 83735; 84443; 84484; 85025; 85610; 85730; 87040; 87070; 87205; 93005; 93306; 94002; 95816; 95819; 95957; C9113; J1815; J2060; J2270; J2543; J2704; J3370; J3490; J7042; J7050